=== PATIENT | female | born 1965 | race Caucasian/White ===

== ENCOUNTER 2020-09-25 13:21 | Outpatient (CLI) | payer OTHER | END 2020-09-25 13:22 | disposition home or self-care (01) | LOC: BICMAMMO 13:21 | PROVIDERS: ATTEND Registered Nurse | DX: Z12.31 Encounter for screening mammogram for malignant neoplasm of breast (principal); Z13.820 Encounter for screening for osteoporosis; M85.89 Other specified disorders of bone density and structure, multiple sites; Z78.0 Asymptomatic menopausal state | CPT/HCPCS: 77063; 77067; 77080 ==

== ENCOUNTER 2021-09-26 08:51 | Outpatient (CLI) | payer OTHER | END 2021-09-26 08:52 | disposition home or self-care (01) | LOC: BICMAMMO 08:51 | PROVIDERS: ATTEND Registered Nurse | DX: Z12.31 Encounter for screening mammogram for malignant neoplasm of breast (principal); Z13.820 Encounter for screening for osteoporosis; Z78.0 Asymptomatic menopausal state; E55.9 Vitamin D deficiency, unspecified | CPT/HCPCS: 77063; 77067; 77080 ==

== ENCOUNTER 2022-09-05 16:17 | Emergency (ER) | payer OTHER ==
[2022-09-05] MEDS ORDERED: Ibuprofen 800 MG TAB ONE (17:40)
== END 2022-09-05 19:27 | disposition home or self-care (01) ==
LOC: ERS 16:17
DX: M79.604 Pain in right leg (principal); E11.9 Type 2 diabetes mellitus without complications; E03.9 Hypothyroidism, unspecified; E78.00 Pure hypercholesterolemia, unspecified; Z87.891 Personal history of nicotine dependence

== ENCOUNTER 2024-03-26 10:22 | Outpatient (CLI) | payer OTHER | END 2024-03-26 10:23 | disposition home or self-care (01) | LOC: BICMAMMO 10:22 | PROVIDERS: ATTEND Registered Nurse | DX: Z12.31 Encounter for screening mammogram for malignant neoplasm of breast (principal) | CPT/HCPCS: 77063; 77067 ==

== ENCOUNTER 2024-05-31 00:04 | Inpatient (IN) | payer OTHER ==
[2024-05-31] MEDS ORDERED: Magnesium 2 GM/50 ML BAG (IN WATER) ONE (01:04)
[2024-05-31] MEDS ORDERED: Ipratropium/Albuterol 3 ML NEB ONE (01:04)
[2024-05-31] MEDS ORDERED: Ipratropium/Albuterol 3 ML NEB NEB PRN (03:43)
[2024-05-31] MEDS ORDERED: Ondansetron PF 4 MG/2 ML Vial IVP PRN (03:46)
[2024-05-31] MEDS ORDERED: Albuterol 2.5 MG (3 mL) NEB NEB PRN (03:47)
[2024-05-31] MEDS ORDERED: Dextrose 50% Abboject 50 ML SYRINGE SLOW IVP PRN (03:59)
[2024-05-31] MEDS ORDERED: Glucagon 1 MG/ML KIT IM PRN (03:59)
[2024-05-31] MEDS ORDERED: Insulin Lispro 100 UNIT/ML 10 ML VIAL SC PRN (03:59)
[2024-05-31] MEDS ORDERED: Dextrose 5% in Water 1,000 ML IV PRN (03:59)
[2024-05-31 04:38] LABS: Actual Bicarbonate (HCO3v) 24.8 mEq/L (22-28); Base Excess -0.3 mEq/L (-2.0 to +3.0); Calcium, Ionized (venous) 1.21 mmol/L (1.16-1.32); Chloride (VBG) 104 mmol/L (98-106); Hematocrit-VBG 42 % (36.0-47.0); Hemoglobin (Hb) 14.3 g/dL (11.7-16.0); Potassium (VBG) 4.52 mmol/L (3.70-5.30); Sodium 140 mmol/L (133-146); pH (venous) 7.386 (7.32-7.43)
[2024-05-31 05:07] LABS: #Basophils Less than 0.03 10x3/uL (0.0-0.2); #Eosinophils Less than 0.03 10x3/uL (0.0-0.7); %Basophils 0.2 % (0.0-1.0); %Lymphocytes 5.4 % (21.0-51.0); %Monocytes 0.3 % (0.0-10.0); %Neutrophils 93.6 % (42.0-75.0); Hematocrit 41.8 % (36.0-47.0); Hemoglobin 13.4 g/dL (12.0-16.0); Mean Corpuscular HGB CONC 32.1 g/dL (32.0-36.0); Mean Corpuscular Hemoglobin 27.6 pg (27.0-31.0); Mean Platelet Volume 10.7 fL (7.4-10.4); Platelet Count 322 10x3/uL (130-400); RBC Distribution Width 13.1 % (11.5-14.5); Red Blood Cell (RBC) Count 4.86 mill/uL (4.20-5.40)
[2024-05-31 05:10] VITALS: BMI 42.8
[2024-05-31] MEDS: methylPREDNISolone Sod Succ 40 MG VIAL IVP SCH ×2 (05:35→10:54)
[2024-05-31 05:48] LABS: Anion Gap 15 mmol/L (10-20); BUN (Urea Nitrogen) 19 mg/dL (9.8-20.1); Calc. Creatinine Clearance 95 mL/min (70-130); Calcium 9.2 mg/dL (7.8-10.44); Carbon Dioxide 22 mmol/L (22-29); Chloride 106 mmol/L (98-107); Estimated GFR 65; Glucose 251 mg/dL (70-105); Potassium 4.5 mmol/L (3.5-5.1); Sodium 138 mmol/L (136-145)
[2024-05-31] MEDS: Insulin Lispro 100 UNIT/ML 10 ML VIAL SC PRN (05:50)
[2024-05-31] MEDS: Ipratropium/Albuterol 3 ML NEB NEB SCH ×2 (06:39→14:19)
[2024-05-31] MEDS: FLU (Fluarix Triv) TS24-25(6MOS UP)/PF 45 MCG/0.5 ML Syringe IM ONE (07:23)
[2024-05-31] MEDS: Enoxaparin 40 MG (0.4 mL) SYRINGE SC SCH (07:31)
[2024-05-31] MEDS: Pantoprazole 40 MG DR.TAB PO SCH (08:54)
[2024-05-31] MEDS: Gabapentin 300 MG CAP PO SCH (08:54)
[2024-05-31] MEDS: Cholecalciferol 1,000 UNITS (25 MCG) TAB PO SCH (10:53)
[2024-05-31] MEDS: Acetaminophen 325 MG TAB PO PRN (17:36)
[2024-05-31] MEDS: Simvastatin 5 MG TAB PO SCH (21:57)
[2024-05-31] MEDS: cefTRIAXone\\ROCEPHIN 1 GM in Sodium Chloride 0.9% 100 ML IVPB SCH (22:01)
[2024-05-31] MEDS: Azithromycin 500 MG in Sodium Chloride 0.9% 250 ML 250 ML IVPB SCH (23:28)
[2024-06-01] MEDS: Levothyroxine Sodium 50 MCG TAB PO SCH (05:30)
[2024-06-01] MEDS: Pantoprazole 40 MG DR.TAB PO SCH (09:11)
[2024-06-01] MEDS: Cholecalciferol 1,000 UNITS (25 MCG) TAB PO SCH (09:12)
[2024-06-01 16:53] VITALS: BP 146/70; TEMP 97.6
== END 2024-06-01 17:03 | disposition home or self-care (01) | DRG 189 ==
LOC: ERS 00:04 → IMCU/EMU 03:40 → T4-B 10:04
PROVIDERS: ADMIT Internal Medicine; ATTEND Internal Medicine
DX: J96.01 Acute respiratory failure with hypoxia (principal); J44.1 Chronic obstructive pulmonary disease with (acute) exacerbation; N17.9 Acute kidney failure, unspecified; E11.9 Type 2 diabetes mellitus without complications; E78.5 Hyperlipidemia, unspecified; E03.9 Hypothyroidism, unspecified; Z87.891 Personal history of nicotine dependence; Z98.890 Other specified postprocedural states; Z79.899 Other long term (current) drug therapy; Z79.4 Long term (current) use of insulin
CPT/HCPCS: 36415; 36416; 80048; 82805; 85025; 87633; 96374; J0456; J0696; J1650; J1815; J2919; J3475; J7050; J7620

== ENCOUNTER 2025-04-05 12:22 | Outpatient (CLI) | payer OTHER | END 2025-04-05 12:23 | disposition home or self-care (01) | LOC: BICMAMMO 12:22 | PROVIDERS: ATTEND Thoracic Surgery (Cardiothoracic Vascular Surgery) | DX: Z12.31 Encounter for screening mammogram for malignant neoplasm of breast (principal) | CPT/HCPCS: 77063; 77067 ==